=== PATIENT | female | born 1970 | race Caucasian/White ===

== ENCOUNTER → 2020-11-22 | Outpatient (CLI) | payer OTHER ==
--- NOTE | 2020-11-23 11:21 | SLEEP ---
DATE OF STUDY: 11/22/2020 SLEEP STUDY The patient is 50-year-old who weighs 248 pounds with a BMI of 41. The patient's Estero score was 12. The patient underwent split night study performed at [facility]. During the night study, the patient spent 543 minutes in bed and slept for 434 minutes with a sleep efficiency of 80%. Sleep latency was 57 minutes with a REM latency of 237 minutes. Sleep architecture showed normal stage 1 and stage 2 sleep, normal slow wave and increased REM sleep, which was 30% of total sleep time. During the initial diagnostic portion of the study, the patient slept for 284 minutes. During that time, there were 7 obstructive apneas, no mixed apneas, 2 central apneas and 69 hypopneas. The patient's AHI was 17 per hour with a supine AHI of 39 per hour and a REM AHI of 58 per hour. EKG monitoring revealed an average heart rate of 72 beats per minute. No arrhythmias observed. No PLMS seen. Nocturnal oximetry study revealed no significant desaturations. Only 3.3% of time oxygen saturation remained between 80 and 89%. The patient met the criteria for CPAP initiation. It was started at 5 cm water and titrated up to 7 cm water. At the final pressure, the patient slept for 79 minutes. The patient's AHI was reduced to 3 per hour. The patient had supine as well as REM sleep. Oxygen saturation remained above 93%. IMPRESSION: 1. Moderate obstructive sleep apnea with worsening during supine and REM sleep. Total AHI 17 per hour with a supine AHI of 39 per hour and a REM AHI of 58 per hour. 2. No significant nocturnal hypoxia. 3. No significant periodic limb movements of sleep. RECOMMENDATIONS: 1. CPAP at 7 cm water completely eliminated the patient's sleep apnea, should be used on a nightly basis. 2. Follow up in 4-6 weeks to assess compliance with CPAP and to document clinical improvement. 3. Weight loss is strongly advised. 4. Avoid [employer] depressants. 5. Cautioned regarding driving until symptoms of sleep apnea resolve with the use of CPAP. 6. The patient used medium size nasal pillows with chin strap. CYNDI DR: Jackson TID: [id number]
== END ==
LOC: SLPLAB 19:06
PROVIDERS: ATTEND Family Medicine
DX: U07.1 COVID-19 (principal); G47.33 Obstructive sleep apnea (adult) (pediatric)
CPT/HCPCS: 95810

== ENCOUNTER → 2020-11-23 | Outpatient (CLI) | payer OTHER ==
[2020-11-23 09:36] LABS: BASO # 0.1 x10^3/uL (0.0-0.2); BASO % 1 % (0-3); EOS # 0.2 x10^3/uL (0.0-0.7); EOS % 3 % (0-3); HEMATOCRIT 40.2 % (36.0-47.0); HEMOGLOBIN 13.4 g/dL (12.0-15.5); LYMPH # 1.4 x10^3/uL (1.0-4.8); LYMPH % 22 % (24-48); MEAN CORPUSCULAR HEMOGLOBIN 31 pg (25-35); MEAN CORPUSCULAR HGB CONC 33 g/dL (31-37); MEAN CORPUSCULAR VOLUME 93 fL (79-100); MONO # 0.6 x10^3/uL (0.0-1.1); MONO % 9 % (0-9); NEUT # 4.2 x10^3/uL (1.8-7.7); NEUT % 64 % (31-73); PLATELET COUNT 275 x10^3/uL (140-400); RED BLOOD COUNT 4.35 x10^6/uL (3.50-5.40); RED CELL DISTRIBUTION WIDTH 13.1 % (11.5-14.5); WHITE BLOOD COUNT 6.5 x10^3/uL (4.0-11.0)
[2020-11-23 09:51] LABS: ALBUMIN 3.4 g/dL (3.4-5.0); ALBUMIN/GLOBULIN RATIO 0.9 (1.0-1.7); CALCIUM 8.8 mg/dL (8.5-10.1); CHOLESTEROL/HDL RATIO 2.7; CREATININE 0.6 mg/dL (0.6-1.0); GFR 105.4; POTASSIUM 4.1 mmol/L (3.5-5.1); TOTAL BILIRUBIN 0.5 mg/dL (0.2-1.0)
[2020-11-24 00:24] LABS: HEMOGLOBIN A1C 5.5 % (4.8-5.6)
== END ==
LOC: LAB 08:50
PROVIDERS: ATTEND Family Medicine
DX: Z01.419 Encounter for gynecological examination (general) (routine) without abnormal findings (principal)
CPT/HCPCS: 36415; 80053; 80061; 83036; 84443; 85025

== ENCOUNTER → 2020-12-22 | Outpatient (CLI) | payer OTHER ==
[2020-12-22 08:44] LABS: ALBUMIN 3.7 g/dL (3.4-5.0); CALCIUM 8.3 mg/dL (8.5-10.1); CREATININE 0.7 mg/dL (0.6-1.0); DIRECT BILIRUBIN 0.2 mg/dL (0.0-0.2); GFR 88.2; TOTAL BILIRUBIN 0.6 mg/dL (0.2-1.0); TOTAL PROTEIN 7.3 g/dL (6.4-8.2)
--- NOTE | 2020-12-22 09:14 | RAD ---
EXAM: ABDOMINAL ULTRASOUND. HISTORY: Elevated liver enzymes. COMPARISON: None. FINDINGS: Sonographic evaluation of the abdomen was performed. Increased hepatic parenchymal echogenicity is consistent with steatosis. Hypoechoic focus in the righ t hepatic lobe measures 1.7 cm and is indeterminate. The spleen measures 9.7 cm. The gallbladder is unremarkable without evidence of stones, wall thickening or pericholecystic fluid. There is no sonographic Kc sign. The common duct measures 5 mm. The visualized portions of the h ead of the pancreas reveal no abnormality. The right kidney measures 10.7 cm. Cortical thickness and echogenicity are preserved. There is no hyd ronephrosis. The left kidney measures 10.6 cm. Cortical thickness and echogenicity are preserved. The re is no hydronephrosis. The visualized portions of the abdominal aorta and inferior vena cava are grossly patent and normal i n caliber. IMPRESSION: 1. A 1.7 cm hypoechoic lesion within the right hepatic lobe may represent focal fatty sparing but is indeterminate. MRI with and without contrast could exclude a solid mass. 2. Diffuse hepatic steatosis. Electronically signed by: Ellen Ng MD (12/22/2020 9:11 AM) [id number]
== END ==
LOC: US 06:45
PROVIDERS: ATTEND Family Medicine
DX: K76.0 Fatty (change of) liver, not elsewhere classified (principal); I10 Essential (primary) hypertension; R74.8 Abnormal levels of other serum enzymes
CPT/HCPCS: 36415; 76700; 80048; 80076; 86803; 87340

== ENCOUNTER → 2021-01-05 | Outpatient (CLI) | payer OTHER ==
[~2021-01-05] MED LIST: ALBU2.5V8 IH; GADOTERATE 5 MMOL/10ML VIAL. IVP ONE; LOSA100T14 PO
--- NOTE | 2021-01-06 08:46 | KCIC ---
EXAM: MRI ABDOMEN WITH AND WITHOUT CONTRAST. HISTORY: Liver lesion. TECHNIQUE: MRI of the abdomen was performed before and after the intravenous administration of 20 mL Clariscan. COMPARISON: 12/22/2020. FINDINGS: Liver: Hepatic parenchymal signal loss on opposed phase images indicates severe diffuse hepatic steat osis. A T2 hyperintense lesion within hepatic segment 7 measures 1.2 cm and likely corresponds with t he finding of ultrasound. It demonstrates progressive persistent enhancement consistent with a benign hemangioma. There are no suspicious hepatic lesions. Biliary tree: The gallbladder is unremarkable. The common duct is not dilated. There are no suspiciou s pancreatic parenchymal lesions. The pancreatic duct is not dilated. Other findings: A 1.5 cm left adrenal nodule demonstrates signal loss on opposed phase images consist ent with a benign adenoma. The right adrenal gland is unremarkable. Subcentimeter cysts in the left kidney are likely benign. The spleen is unremarkable. IMPRESSION: 1. 1.2 cm benign hemangioma in hepatic segment 7. No suspicious hepatic lesions. 2. Severe diffuse hepatic steatosis. 3. 1.5 cm benign left adrenal adenoma. Electronically signed by: Ellen Ng MD (01/06/2021 8:44 AM) [facility]
== END ==
LOC: KCIC MRI 12:46
PROVIDERS: ATTEND Family Medicine
DX: K76.0 Fatty (change of) liver, not elsewhere classified (principal); K76.9 Liver disease, unspecified; R74.8 Abnormal levels of other serum enzymes; N28.1 Cyst of kidney, acquired; D35.02 Benign neoplasm of left adrenal gland; D18.09 Hemangioma of other sites
CPT/HCPCS: 74183; A9575

== ENCOUNTER → 2021-03-21 | Outpatient (CLI) | payer OTHER ==
[~2021-03-21] MED LIST changes: -GADOTERATE 5 MMOL/10ML VIAL. IVP ONE
[2021-03-21 09:48] LABS: CALCIUM 8.5 mg/dL (8.5-10.1); CREATININE 0.6 mg/dL (0.6-1.0); GFR 105.4
== END ==
LOC: LAB 08:41
PROVIDERS: ATTEND Internal Medicine Endocrinology, Diabetes & Metabolism
DX: D35.00 Benign neoplasm of unspecified adrenal gland (principal); I10 Essential (primary) hypertension; E78.5 Hyperlipidemia, unspecified
CPT/HCPCS: 80048; 82088; 82533; 84244

== ENCOUNTER → 2021-06-28 | Outpatient (CLI) | payer OTHER ==
[2021-06-28 08:06] LABS: BASO # 0.1 x10^3/uL (0.0-0.2); BASO % 1 % (0-3); EOS # 0.2 x10^3/uL (0.0-0.7); EOS % 4 % (0-3); HEMATOCRIT 40.2 % (36.0-47.0); HEMOGLOBIN 13.7 g/dL (12.0-15.5); LYMPH # 1.6 x10^3/uL (1.0-4.8); LYMPH % 24 % (24-48); MEAN CORPUSCULAR HEMOGLOBIN 31 pg (25-35); MEAN CORPUSCULAR HGB CONC 34 g/dL (31-37); MEAN CORPUSCULAR VOLUME 92 fL (79-100); MONO # 0.6 x10^3/uL (0.0-1.1); MONO % 10 % (0-9); NEUT # 4.1 x10^3/uL (1.8-7.7); NEUT % 62 % (31-73); PLATELET COUNT 315 x10^3/uL (140-400); RED BLOOD COUNT 4.39 x10^6/uL (3.50-5.40); WHITE BLOOD COUNT 6.6 x10^3/uL (4.0-11.0)
[2021-06-28 08:17] LABS: ALBUMIN 3.8 g/dL (3.4-5.0); ALBUMIN/GLOBULIN RATIO 1.1 (1.0-1.7); CALCIUM 8.7 mg/dL (8.5-10.1); CREATININE 0.7 mg/dL (0.6-1.0); GFR 88.2; POTASSIUM 4.1 mmol/L (3.5-5.1); TOTAL BILIRUBIN 0.6 mg/dL (0.2-1.0); TOTAL PROTEIN 7.3 g/dL (6.4-8.2)
[2021-06-28 08:18] LABS: CHOLESTEROL/HDL RATIO 2.8
[2021-06-29 00:08] LABS: HEMOGLOBIN A1C 5.5 % (4.8-5.6)
== END ==
LOC: LAB 07:47
PROVIDERS: ATTEND Family Medicine
DX: I10 Essential (primary) hypertension (principal); E78.2 Mixed hyperlipidemia; E66.01 Morbid (severe) obesity due to excess calories
CPT/HCPCS: 36415; 80053; 80061; 83036; 85025